=== PATIENT | male | born 1955 | race Caucasian/White ===

== ENCOUNTER → 2025-08-14 | Outpatient (CLI) | payer MEDICARE, SELFPAY ==
--- NOTE | 2025-08-14 13:10 | RAD_ITS ---
PROCEDURE: RAD/Shoulder min 2 Views
--- NOTE | 2025-08-14 13:10 | RAD_ITS ---
PROCEDURE: RAD/Shoulder min 2 Views
== END | disposition home or self-care (01) ==
LOC: RAD 12:52
PROVIDERS: PCP Family Medicine; Referring Provider Anesthesiology; Visit Provider Anesthesiology
DX: M25.512 Pain in left shoulder (principal); M25.511 Pain in right shoulder
CPT/HCPCS: 73030